=== PATIENT | male | born 1995 | race Caucasian/White ===

== ENCOUNTER 2016-10-21 04:12 | Emergency (ER) | payer SELFPAY ==
[~2016-10-21] VITALS: Ht 170.2 cm; Wt 65.5 kg
[~2016-10-21 04:12] MED LIST: ALBU2.5V3 NEB; ALBU8.5H3 INH; ALBU8.5H5 IH; AMO500 PO; PRED20TA PO; PRED50TA PO; RANI150T9 PO
[2016-10-21 04:19] VITALS: Ht 170.2 cm; Wt 65.5 kg
== END 2016-10-21 05:43 | disposition left against medical advice (07) ==
LOC: FTE 04:12
DX: Z53.21 Procedure and treatment not carried out due to patient leaving prior to being seen by health care provider (principal)